=== PATIENT | male | born 1950 | race Caucasian/White ===

== ENCOUNTER 2016-10-26 05:03 | Emergency (ER) | payer BC ==
[~2016-10-26 05:03] MED LIST: ASAB PO; CATAPRES2 TOP; CO-Q10 PO; COREG25 PO; DEMA20 PO; GARLIC PO; GLUCOPHAGE1000 MG PO; GLUCOTRO10 PO; JANUMET1 TA1 PO; LOTE20 PO; MULTIPLE VIT PO; PCET PO; PRAVAC PO; TOUJEO SQ
[2017-01-24] MEDS ORDERED: NORV10 PO (13:38)
[2017-01-24] MEDS ORDERED: EYE CAPS (13:38)
[2017-01-24] MEDS ORDERED: APRES50 PO (13:39)
[2017-01-24] MEDS ORDERED: ACETSUP650 PR (13:40)
[2017-01-24] MEDS ORDERED: NORCO1 TAB PO (13:41)
[2017-01-24] MEDS ORDERED: MEDS (13:59)
== END 2016-10-26 05:46 | disposition home or self-care (01) ==
LOC: ER 05:03
DX: S22.089A Unspecified fracture of T11-T12 vertebra, initial encounter for closed fracture (principal); I10 Essential (primary) hypertension; E11.9 Type 2 diabetes mellitus without complications; Z85.53 Personal history of malignant neoplasm of renal pelvis; Z87.442 Personal history of urinary calculi; Z90.5 Acquired absence of kidney; Z79.82 Long term (current) use of aspirin; Z79.84 Long term (current) use of oral hypoglycemic drugs; Z79.4 Long term (current) use of insulin; W01.0XXA Fall on same level from slipping, tripping and stumbling without subsequent striking against object, initial encounter; Z79.899 Other long term (current) drug therapy
CPT/HCPCS: 72131; 96372; 99284; J1170